=== PATIENT | male | born 1950 | race African-American/Black ===

== ENCOUNTER 2018-03-29 13:37 | Emergency (ER) | payer OTHER ==
[2018-03-29 14:29] LABS: ABS Basophils 0.1 10^3/ul (0-0.2); ABS Eosinophils 0.1 10^3/ul (0-0.6); ABS Lymphocytes 1.7 10^3/ul (1.0-4.8); ABS Monocytes 0.7 10^3/ul (0-0.8); ABS Neutrophils 6.2 10^3/ul (1.5-7.7); ABS Nucleated RBC 0 10^3/ul; Eosinophil % 1.5 % (0-6); Hematocrit 43 % (42-52); Hemoglobin 14.7 g/dl (14.0-18.0); Lymphocyte % 19.4 % (25-47); Mean Corpuscular HGB Conc 34 g/dl (31-36); Mean Corpuscular Hemoglobin 31 pg (27-31); Mean Corpuscular Volume 91 fL (80-94); Mean Platelet Volume 7.1 um3 (7.4-10.4); Nucleated Red Blood Cells % 0; Platelet Count 381 10^3/ul (150-450); Red Blood Count 4.69 10^6/ul (4.00-5.40); Red Cell Distribution Width 14 % (10.5-15); White Blood Count 8.9 10^3/ul (3.5-10.8)
[2018-03-29 14:44] LABS: Urine Appearance Clear; Urine Blood 1+ (Negative); Urine Color Yellow; Urine Ketones 1+ (Negative); Urine Protein Negative (Negative); Urine Red Blood Cell Trace(0-2/hpf) (Absent); Urine Specific Gravity 1.012 (1.010-1.030); Urine Urobilinogen Negative (Negative); Urine White Blood Cell Absent (Absent)
[2018-03-29 14:47] LABS: EGFR Non-African American 58.5 (>60)
--- NOTE | 2018-03-29 14:54 | ED ---
HPI Cardiac - HPI Summary HPI Summary: Pt is a 67 y/o male who presents to the ED c/o AAA symptoms. He was sent here by Dr. Escalante, because of his worsening AAA. Pt was recently in a detox program for healthy lifestyles for people with heart problems. Pt c/o a violent throbbing pulsating feeling in his left groin for the past few weeks. He complains of mild discomfort and fatigue in his legs. Pt denies any numbness or tingling of his feet, or abdominal pain. As per daughter, he does not exercise enough and has become more fatigued and lethargic. The AAA was diagnosed several years ago but was not treated at the time because it wasnt severe. Today his BP was 112/70. PMHx CAD, HTN, IA, stents. Pt is a former smoker. - History of Current Complaint Chief Complaint: EDAbdPain Stated Complaint: LT SIDE ABD PAIN Hx Obtained From: Patient, Family/Merchandising Assistant - Daughter Onset/Duration: Started Weeks Ago - Several years ago, Worse Since Timing: Constant Current Severity: Moderate Pain Intensity: 3 Pain Scale Used: 0-10 Numeric Character: Other: - Pulsatile abdominal mass Associated Signs and Symptoms: Negative: Numbness, Tingling, Abdominal Pain Related History: Similar Episode/Dx as: - AAA - Allergy/Home Medications Allergies/Adverse Reactions: Allergies Allergy/AdvReac Type Severity Reaction Status Date / Time shellfish derived Allergy Unknown Verified 03/29/18 17:54 Reaction Details Home Medications: Home Medications NK [No Home Medications Reported] 03/29/18 [History Confirmed 03/29/18] PMH/Surg Hx/FS Hx/Imm Hx Cardiovascular History: Reports: Hx Aneurysm - AAA diagnosed several years ago, Hx Coronary Artery Disease, Hx Hypertension, Hx Myocardial Infarction Respiratory History: Denies: Hx Asthma - Surgical History Surgery Procedure, Year, and Place: Stents Infectious Disease History: No Infectious Disease History: Reports: Traveled Outside the [place] in Last 30 Days - [place] - Family History Known Family History: Positive: Cardiac Disease, Hypertension - Social History Alcohol Use: Occasionally Hx Substance Use: No Substance Use Type: Reports: None Hx Tobacco Use: Yes Smoking Status (MU): Former Smoker Review of Systems Positive: Fatigue. Negative: Fever Negative: Blurred Vision, Diplopia Negative: Sore Throat, Ear Ache Positive: Other - Pulsating feeling in left groin. Negative: Chest Pain Negative: Shortness Of Breath Negative: Other - Hematochezia Negative: hematuria Positive: Myalgia - Low back pain Negative: Rash, Bruising All Other Systems Reviewed And Are Negative: No NIH Scale - NIH Scale Level of Consciousness: Alert/Keenly Responsive Ask Patient the Month and His/Her Age: Both Correct Ask Pt to Open/Close Eyes and Cinder Snapper/Release Non-Paretic Hand: Both Correctly Best Gaze (Only Horizontal Eye Movement): Normal Visual Field Testing: No Visual Loss Facial Paresis-Pt to Smile & Close Eyes or Grimace Symmetry: Normal/Symmetrical Motor Function - Right Arm: No Drift-Holds 10 Seconds Motor Function - Left Arm: No Drift-Holds 10 Seconds Motor Function - Right Leg: No Drift-Holds 10 Seconds Motor Function - Left Leg: No Drift-Holds 10 Seconds Limb Ataxia-Must be out of Proportion to Weakness Present: Absent Sensory (Use Pinprick to Test Arms/Legs/Trunk/Face): Normal Best Language (Describe Picture, Name Items): No Aphasia Dysarthria (Read Several Words): Normal Extinction and Inattention: No Abnormality Total Score: 0 Physical Exam - Summary Physical Exam Summary: Appearance: Alert, conversive, nontoxic appearing Skin: Warm, dry, no mottling, no rashes, no contusions HEENT: EOMI, PERRL, moist mucous membranes Neck: No masses on the neck, supple Respiratory: Clear to auscultation, breath sounds present, no rales, no rhonchi , no wheezes Cardiovascular: RRR, great femoral and dorsalis pedis pulses bilaterally Abdomen: Soft, non-tender, pulsatile mass Bowel Sounds: Present Musculoskeletal: No CVA tenderness, no obvious deformity, moving all extremities in a grossly normal manner Neurological: A&Ox3, CN II-XII Intact, moving all extremities symmetrically Psychiatric: Normal affect and mood Triage Information Reviewed: Yes Vital Signs On Initial Exam: Initial Vitals Temp Pulse Resp BP Pulse Ox 97.7 F 85 18 112/70 93 03/29/18 13:57 03/29/18 13:57 03/29/18 13:57 03/29/18 13:57 03/29/18 13:57 Vital Signs Reviewed: Yes Diagnostics - Vital Signs Vital Signs Temp Pulse Resp BP Pulse Ox 03/29/18 13:57 97.7 F 85 18 112/70 93 - Laboratory Lab Results: Lab Results 03/29/18 03/29/18 03/29/18 Range/Units 14:19 14:19 14:27 WBC 8.9 (3.5-10.8) 10^3/ul RBC 4.69 (4.00-5.40) 10^6/ul Hgb 14.7 (14.0-18.0) g/dl Hct 43 (42-52) % MCV 91 (80-94) fL MCH 31 (27-31) pg MCHC 34 (31-36) g/dl RDW 14 (10.5-15) % Plt Count 381 (150-450) 10^3/ul MPV 7.1 L (7.4-10.4) um3 Neut % (Auto) 69.8 (38-83) % Lymph % (Auto) 19.4 L (25-47) % Pitt % (Auto) 8.2 H (0-7) % Eos % (Auto) 1.5 (0-6) % Baso % (Auto) 1.1 (0-2) % Absolute Neuts (auto) 6.2 (1.5-7.7) 10^3/ul Absolute Lymphs (auto) 1.7 (1.0-4.8) 10^3/ul Absolute Monos (auto) 0.7 (0-0.8) 10^3/ul Absolute Eos (auto) 0.1 (0-0.6) 10^3/ul Absolute Basos (auto) 0.1 (0-0.2) 10^3/ul Absolute Nucleated RBC 0 10^3/ul Nucleated RBC % 0 Sodium 133 L (135-145) mmol/L Potassium 3.8 (3.5-5.0) mmol/L Chloride 94 L (101-111) mmol/L Carbon Dioxide 29 (22-32) mmol/L Anion Gap 10 (2-11) mmol/L BUN 20 (6-24) mg/dL Creatinine 1.23 H (0.67-1.17) mg/dL Est GFR ( Amer) 70.8 (>60) Est GFR (Non-Af Amer) 58.5 (>60) BUN/Creatinine Ratio 16.3 (8-20) Glucose 82 (70-100) mg/dL Calcium 9.5 (8.6-10.3) mg/dL Total Bilirubin 0.70 (0.2-1.0) mg/dL AST 28 (13-39) U/L ALT 17 (7-52) U/L Alkaline Phosphatase 51 (34-104) U/L Total Protein 7.2 (6.4-8.9) g/dL Albumin 4.3 (3.2-5.2) g/dL Globulin 2.9 (2-4) g/dL Albumin/Globulin Ratio 1.5 (1-3) Lipase 25 (11.0-82.0) U/L Urine Color Yellow Urine Appearance Clear Urine pH 6.0 (5-9) Ur Specific Jackson 1.012 (1.010-1.030) Urine Protein Negative (Negative) Urine Ketones 1+ A (Negative) Urine Blood 1+ A (Negative) Urine Nitrate Negative (Negative) Urine Bilirubin Negative (Negative) Urine Urobilinogen Negative (Negative) Ur Leukocyte Esterase Negative (Negative) Urine WBC (Auto) Absent (Absent) Urine RBC (Auto) Trace(0-2/hpf) (Absent) Urine Bacteria Absent (Absent) Urine Glucose Negative (Negative) Result Diagrams: 03/29/18 14:19 03/29/18 14:19 Lab Statement: Any lab studies that have been ordered have been reviewed, and results considered in the medical decision making process. - CT Chest/Abd/Pel CTA CT Interpretation: Positive (See Comments) - 1. 4.5 CM ANEURYSM OF THE DISTAL ABDOMINAL AORTA. 2. 2.7 CM ANEURYSM OF THE RIGHT COMMON ILIAC ARTERY. 3. ECTASIA OF THE ASCENDING THORACIC AORTA. 4. 5 MM RIGHT LOWER LOBE PULMONARY NODULE. RECOMMEND A FOLLOW-UP NONCONTRAST LOW-DOSE CT OF THE CHEST IN ONE YEARS TIME. 5. MODERATE TO SEVERE CENTRILOBULAR EMPHYSEMATOUS CHANGE. ED physician reviewed radiology report. CT Interpretation Completed By: Radiologist Re-Evaluation - Re-Evaluation First Eval Re-Evaluation Time: 18:05 Change: Unchanged Comment: Spent 15 minutes with pt explaining the results. He is to follow up with radiology ct technologist, union contract representative, and PCP about his pulmonary nodule, AAA, and emphysema. He needs a repeat CT, and was given 3 copies of CDs and reports for his physicians. Disposition - Course Course Of Treatment: Pt is a 67 y/o male who presents to the ED c/o AAA symptoms. Pt c/o a violent throbbing pulsating feeling in his left groin for the past few weeks. He complains of mild discomfort and fatigue in his legs. Pt denies any numbness or tingling of his feet, or abdominal pain. As per daughter , he does not exercise enough and has become more fatigued and lethargic. The AAA was diagnosed several years ago but was not treated at the time because it wasnt severe. A physical exam revealed abdominal pulsatile mass, great femoral and dorsalis pedis pulses bilaterally. A chest/abdomen/pelvis CTA revealed 1. 4.5 CM ANEURYSM OF THE DISTAL ABDOMINAL AORTA. 2. 2.7 CM ANEURYSM OF THE RIGHT COMMON ILIAC ARTERY. 3. ECTASIA OF THE ASCENDING THORACIC AORTA. 4. 5 MM RIGHT LOWER LOBE PULMONARY NODULE. RECOMMEND A FOLLOW-UP NONCONTRAST LOW-DOSE CT OF THE CHEST IN ONE YEARS TIME. 5. MODERATE TO SEVERE CENTRILOBULAR EMPHYSEMATOUS CHANGE. Spent 15 minutes with pt explaining the results. He is to follow up with radiology ct technologist, union contract representative, and PCP about his pulmonary nodule, AAA, and emphysema. He needs a repeat CT, and was given 3 copies of CDs and reports for his physicians. Final dx are pulmonary nodule, emphysema, and AAA. Patient is discharged and is agreeable with this plan. - Diagnoses Provider Diagnoses: Emphysema of lung, Pulmonary nodule, AAA (abdominal aortic aneurysm) Discharge - Sign-Out/Discharge Documenting (check all that apply): Patient Departure - Discharge - Discharge Plan Condition: Stable Disposition: HOME Patient Education Materials: Nonruptured Abdominal Aortic Aneurysm (DC) Referrals: [facility] [Provider Group] Additional Instructions: please follow up with your primary care physician, your union contract representative and a radiology ct technologist regarding your aneurysm to your abdominal aorta, right iliac artery, and your pulmonary nodule. return if worse or any new symptoms. Take all medications as previously instructed. - Billing Disposition and Condition Condition: STABLE Disposition: Home - Attestation Statements Document Initiated by Scribe: Yes Documenting Scribe: Phylicia Méndez Provider For Whom Shawnae is Documenting (Include Credential): Noemi Benedict MD Scribe Attestation: Phylicia Jefferson, scribed for Noemi Benedict MD on 03/29/18 at 1855. Scribe Documentation Reviewed: Yes Provider Attestation: The documentation as recorded by the scribe, Phylicia Méndez accurately reflects the service I personally performed and the decisions made by me, Noemi Benedict MD
[2018-03-29] MEDS ORDERED: Iohexol 350* (CONTRAST) 500 ML MDV IV ONE (15:57)
[2018-03-29] MEDS ORDERED: NS 0.9% 1000 ML* 1,000 ML IV ONE (16:45)
--- NOTE | 2018-03-29 17:08 | RAD ---
INDICATION: Pulsatile mass, known abdominal aortic aneurysm. COMPARISON: There are no relevant prior studies available for comparison. TECHNIQUE: A CT angiogram of the chest, abdomen and pelvis was performed with intravenous contrast following intravenous injection of 100 ml of Omnipaque 350 nonionic contrast. Contiguous axial sections were obtained from the lung apices through the symphysis pubis. Images were reconstructed in the coronal and sagittal planes and in a 3-D volume rendered reformatted. FINDINGS: CT ANGIOGRAM OF THE CHEST: There is relatively homogeneous opacification of the pulmonary arteries. No intraluminal filling defect or pulmonary embolism is seen. The heart is within normal limits in size. No pericardial effusion is present. There are coronary artery calcifications present. The ascending thoracic aorta is ectatic measuring up to 1.4 cm in transverse dimension. There is no evidence for dissection. There is mild to moderate calcific and soft plaque present. No significant enlarged mediastinal or hilar lymph nodes are seen. There is moderate to severe centrilobular emphysematous change present. There is a 5 x 4 mm nodular density present in the right lower lobe best seen on axial image #44. The lung are otherwise clear. No pleural effusion or pneumothorax is seen. CT ANGIOGRAM OF THE ABDOMEN AND PELVIS: The abdominal aorta is ectatic. There is a fusiform shaped aneurysm of the distal abdominal aorta measuring 4.5 x 4.4 cm in transverse dimension. There is moderate circumferential soft and calcific plaque. There is no evidence for dissection or rupture. The aneurysm extends into the right common iliac artery which measures up to 2.7 cm in transverse dimension. The celiac axis, superior and inferior mesenteric arteries appear patent without evidence for hemodynamically significant stenosis. There are single bilateral renal arteries without hemodynamically significant stenosis. The liver is normal in size and decreased in attenuation consistent with fatty infiltration. There is more focal decreased density present in the anterior aspect of the left hepatic lobe likely representing focal fatty infiltration. No calcified gallstones are seen. The spleen is normal in size. No focal pancreatic abnormality is seen. There is mild bilateral enlargement of the adrenal glands suggesting the possibility of adrenal gland hyperplasia. The kidneys are normal in size. No focal renal abnormality or hydronephrosis is seen. The prostate gland is enlarged measuring 6.0 cm in transverse dimension. No significant enlarged retroperitoneal lymph nodes are seen. The stomach is mild to moderately distended and filled with fluid. The small bowel colon appear nondistended there is diffuse colonic diverticulosis without evidence for diverticulitis or colitis. No free intraperitoneal air or fluid is seen. No significant focal osseous abnormality is seen. IMPRESSION: 1. 4.5 CM ANEURYSM OF THE DISTAL ABDOMINAL AORTA. 2. 2.7 CM ANEURYSM OF THE RIGHT COMMON ILIAC ARTERY. 3. ECTASIA OF THE ASCENDING THORACIC AORTA. 4. 5 MM RIGHT LOWER LOBE PULMONARY NODULE. RECOMMEND A FOLLOW-UP NONCONTRAST LOW-DOSE CT OF THE CHEST IN ONE YEARS TIME. 5. MODERATE TO SEVERE CENTRILOBULAR EMPHYSEMATOUS CHANGE.
[2018-03-29 18:54] VITALS: BP 143/78
[2018-03-29 18:55] LABS: INR 1.02 (0.77-1.02)
== END 2018-03-29 18:52 | disposition home or self-care (01) ==
LOC: ED 13:37
DX: I71.4 Abdominal aortic aneurysm, without rupture (principal); J43.2 Centrilobular emphysema; R91.1 Solitary pulmonary nodule; I72.3 Aneurysm of iliac artery; I77.810 Thoracic aortic ectasia; I25.10 Atherosclerotic heart disease of native coronary artery without angina pectoris; I25.2 Old myocardial infarction; I10 Essential (primary) hypertension; Z87.891 Personal history of nicotine dependence; Z96.9 Presence of functional implant, unspecified
CPT/HCPCS: 36415; 71275; 74174; 80053; 81003; 81015; 83690; 85025; 85610; 85730; 99282; Q9967